=== PATIENT | female | born 1980 | race Caucasian/White ===

== ENCOUNTER 2016-07-19 19:28 | Emergency (ER) | payer BC ==
[~2016-07-19] VITALS: Ht 160 cm; Wt 69.1 kg
[~2016-07-19 19:28] MED LIST: NATALCARE RX1 TABLET PO
[2016-07-19] MEDS ORDERED: CARBAMAZEPINE100 MG PO (20:23)
[2016-07-19] MEDS ORDERED: NAPROXEN500 MG PO (20:23)
[2016-07-19 21:00] VITALS: BP 123/84
== END 2016-07-19 21:01 | disposition home or self-care (01) ==
LOC: EME 19:28
DX: R51 Headache (principal); H92.01 Otalgia, right ear
CPT/HCPCS: 99281; 99284